=== PATIENT | male | born 1985 | race Caucasian/White ===

== ENCOUNTER 2017-09-03 13:35 | Emergency (ER) | payer SELFPAY ==
[~2017-09-03] VITALS: Ht 188 cm; Wt 97.7 kg
[2017-09-03] MEDS ORDERED: PROZ10 PO (13:54)
[2017-09-03 15:17] VITALS: BP 146/88
== END 2017-09-03 15:17 | disposition home or self-care (01) ==
LOC: EMS 13:37
DX: F41.9 Anxiety disorder, unspecified (principal); F32.9 Major depressive disorder, single episode, unspecified; F17.210 Nicotine dependence, cigarettes, uncomplicated; Z76.0 Encounter for issue of repeat prescription
CPT/HCPCS: 99284

== ENCOUNTER 2018-01-24 05:38 | Emergency (ER) | payer SELFPAY ==
[~2018-01-24] VITALS: Ht 188 cm; Wt 75.9 kg
[~2018-01-24 05:38] MED LIST: PROZ10 PO
[2018-01-24 05:39] VITALS: BP 148/67
== END 2018-01-24 08:08 | disposition home or self-care (01) ==
LOC: EMS 05:39
DX: J02.9 Acute pharyngitis, unspecified (principal); F41.9 Anxiety disorder, unspecified; F32.9 Major depressive disorder, single episode, unspecified; F17.210 Nicotine dependence, cigarettes, uncomplicated; F14.90 Cocaine use, unspecified, uncomplicated; Z90.49 Acquired absence of other specified parts of digestive tract
CPT/HCPCS: 99283

== ENCOUNTER 2018-03-18 04:16 | Emergency (ER) | payer SELFPAY ==
[~2018-03-18] VITALS: Ht 188 cm; Wt 95.5 kg
[2018-03-18] MEDS ORDERED: OLAN2.5T3 PO (04:22)
[2018-03-18] MEDS ORDERED: PROZ10 PO (04:22)
[2018-03-18] MEDS ORDERED: MIRT15 PO (04:22)
[2018-03-18 04:24] LABS: GLUCOSE,POINT OF CARE 78 MG/DL (70-110)
[2018-03-18 06:24] VITALS: BP 151/90
== END 2018-03-18 06:40 | disposition home or self-care (01) ==
LOC: EMS 04:16
DX: F41.9 Anxiety disorder, unspecified (principal); F31.9 Bipolar disorder, unspecified; F17.210 Nicotine dependence, cigarettes, uncomplicated; F12.90 Cannabis use, unspecified, uncomplicated
CPT/HCPCS: 99406